=== PATIENT | female | born 1960 | race Caucasian/White ===

== ENCOUNTER 2022-08-17 20:22 | Emergency (ER) | payer OTHER ==
[~2022-08-17] VITALS: Ht 157.5 cm; Wt 88.5 kg
[2022-08-17 20:43] VITALS: BP_SYST 126
--- NOTE | 2022-08-17 21:00 | NUR ---
Pt brought by self, A&Ox4, pt presents to ER with withdraws , states takes Methadone , Hydrocodone and Robaxin, last time she took meds was monday, pt VSS, also c/o R leg pain and tremors, skin pink and warm, cap refill <3, will cont to monitor
--- NOTE | 2022-08-18 | NUR ---
PT FROM HOME WITH C/O RIGHT LEG PAIN WITH OVERALL BODY PAIN, REPORTS CHRONIC PAIN FROM HX OF MS. PT STATES HER HOME PAIN MEDICATION RAN OUT AND WAS UNABLE TO REFILL. A&O X4, AMBULATORY AND FOLLOWING COMMANDS.
--- NOTE | 2022-08-18 00:15 | NUR ---
WITH PATIENT AT BEDSIDE FOR MSE.
[2022-08-18] MEDS ORDERED: METHADONE HCL 10 MG TABLET PO ONE ×2 (00:30→01:15)
[2022-08-18] MEDS ORDERED: KETOROLAC TROMETHAMINE 30 MG VIAL IM ONE (00:30)
[2022-08-18 01:41] VITALS: BP_SYST 179
--- NOTE | 2022-08-18 01:41 | NUR ---
Patient given written and verbal discharge instructions and verbalizes understanding. ER DR. HONG discussed with patient the results and treatment provided. Patient in stable condition. ID arm band removed. Patient educated on pain management and to follow up with PMD. Pain Scale 0. Opportunity for questions provided and answered. Medication side effect fact sheet provided.
== END 2022-08-18 01:41 | disposition home or self-care (01) ==
LOC: SED 20:22
DX: M54.31 Sciatica, right side (principal); F11.23 Opioid dependence with withdrawal; M79.604 Pain in right leg; Z79.899 Other long term (current) drug therapy
CPT/HCPCS: 99283; 96372; J1885

== ENCOUNTER 2023-01-10 22:35 | Emergency (ER) | payer BC, OTHER ==
[~2023-01-10] VITALS: Ht 157.5 cm; Wt 84.8 kg
[2023-01-10 22:54] VITALS: BP_SYST 159
[2023-01-11] MEDS ORDERED: LORazepam 2 MG/ML VIAL IM ONE (00:30)
[2023-01-11 01:50] VITALS: BP_SYST 150
[2023-01-11] MEDS ORDERED: NEU300 PO ×2 (07:04→07:20)
== END 2023-01-11 01:50 | disposition home or self-care (01) ==
LOC: SED 22:35
DX: G25.81 Restless legs syndrome (principal); F41.9 Anxiety disorder, unspecified; Z79.899 Other long term (current) drug therapy; Z88.1 Allergy status to other antibiotic agents; Z88.2 Allergy status to sulfonamides; Z88.5 Allergy status to narcotic agent; Z88.8 Allergy status to other drugs, medicaments and biological substances
CPT/HCPCS: 99283; 96372; J2060

== ENCOUNTER 2023-01-11 04:47 | Emergency (ER) | payer BC ==
[~2023-01-11] VITALS: Ht 157.5 cm; Wt 81.6 kg
[2023-01-11 05:11] VITALS: BP_SYST 157
[2023-01-11] MEDS ORDERED: NEU300 PO ×2 (07:04→07:20)
[2023-01-11 07:26] VITALS: BP_SYST 144
== END 2023-01-11 07:26 | disposition home or self-care (01) ==
LOC: SED 04:47
DX: G25.81 Restless legs syndrome (principal); Z88.1 Allergy status to other antibiotic agents; Z88.5 Allergy status to narcotic agent; Z88.8 Allergy status to other drugs, medicaments and biological substances; Z79.899 Other long term (current) drug therapy
CPT/HCPCS: 99283

== ENCOUNTER 2023-01-15 02:32 | Emergency (ER) | payer BC ==
[~2023-01-15] VITALS: Ht 157.5 cm; Wt 84.4 kg
[~2023-01-15 02:32] MED LIST: NEU300 PO
[2023-01-15 02:46] VITALS: BP_SYST 131
--- NOTE | 2023-01-15 02:51 | NUR ---
Patient to ER bed 7 to gown for evaluation. Side rails up. Report given to CHARBEL ARGUETA.
--- NOTE | 2023-01-15 03:09 | NUR ---
Dr. Cali at bedside examining the patient.
[2023-01-15] MEDS ORDERED: LORazepam 1 MG TABLET PO ONE (03:15)
[2023-01-15 04:31] VITALS: BP_SYST 131
--- NOTE | 2023-01-15 04:31 | NUR ---
Patient given written and verbal discharge instructions and verbalizes understanding. ER Dr. Cali discussed with patient the results and treatment provided. Patient in stable condition. ID arm band removed. Patient educated on pain management and to follow up with PMD. Pain Scale 0. Opportunity for questions provided and answered. Medication side effect fact sheet provided.
[2023-01-18] MEDS ORDERED: PRED20TA PO (00:57)
== END 2023-01-15 04:31 | disposition home or self-care (01) ==
LOC: SED 02:32
DX: G25.81 Restless legs syndrome (principal); Z88.1 Allergy status to other antibiotic agents; Z88.2 Allergy status to sulfonamides; Z88.5 Allergy status to narcotic agent; Z88.6 Allergy status to analgesic agent; Z88.8 Allergy status to other drugs, medicaments and biological substances; Z79.899 Other long term (current) drug therapy
CPT/HCPCS: 99283

== ENCOUNTER 2023-01-17 23:18 | Emergency (ER) | payer BC ==
[2023-01-17 23:22] VITALS: BP_SYST 146
[2023-01-17] MEDS ORDERED: IPRATROPIUM/ALBUTEROL SULFATE 3 ML AMPUL.NEB (DUONEB) INH ONE (23:45)
[2023-01-17] MEDS ORDERED: predniSONE 20 MG TABLET PO ONE (23:45)
--- NOTE | 2023-01-17 23:50 | NUR ---
PT WAS PLACED IN [address] FOR PT ASSESMENT.
--- NOTE | 2023-01-18 | NUR ---
ER at bedside examining patient.
[2023-01-18] MEDS ORDERED: CARBIDOPA/LEVODOPA 25/250 MG TABLET PO ONE (00:45)
[2023-01-18] MEDS ORDERED: LORazepam 2 MG/ML VIAL IM ONE (00:45)
[2023-01-18] MEDS ORDERED: ALBMDI INH (00:57)
[2023-01-18] MEDS ORDERED: LORA-259 PO (00:57)
[2023-01-18] MEDS ORDERED: PRED20TA PO ×2 (00:57→23:53)
[2023-01-18] MEDS ORDERED: OXAZ10CA3 PO (01:02)
[2023-01-18 01:16] VITALS: BP_SYST 144
--- NOTE | 2023-01-18 01:18 | NUR ---
Patient given written and verbal discharge instructions and verbalizes understanding. ER MD discussed with patient the results and treatment provided. Patient in stable condition. ID arm band removed. IV catheter removed intact and dressing applied, no active bleeding. Rx of ALBUTEROL,OXAZEPAM,PREDNISONE given. Patient educated on pain management and to follow up with PMD. Pain Scale 0/10. Opportunity for questions provided and answered. Medication side effect fact sheet provided.
[2023-01-18] MEDS ORDERED: BACL20TA PO (23:53)
[2023-01-18] MEDS ORDERED: ACET-2634 PO (23:53)
[2023-01-18] MEDS ORDERED: LIDO1ADH22 TP (23:53)
[2023-01-18] MEDS ORDERED: LACT1CAP62 PO (23:53)
[2023-01-18] MEDS ORDERED: LOPE2CAP PO (23:53)
== END 2023-01-18 01:13 | disposition home or self-care (01) ==
LOC: SED 23:18
DX: J45.901 Unspecified asthma with (acute) exacerbation (principal); G25.81 Restless legs syndrome; I10 Essential (primary) hypertension; Z88.1 Allergy status to other antibiotic agents; Z88.2 Allergy status to sulfonamides; Z88.5 Allergy status to narcotic agent; Z88.6 Allergy status to analgesic agent; Z88.8 Allergy status to other drugs, medicaments and biological substances; Z79.899 Other long term (current) drug therapy
CPT/HCPCS: 99283; 71046; 94640; 96372; J7512; J2060

== ENCOUNTER 2023-01-18 23:02 | Emergency (ER) | payer BC ==
[~2023-01-18] VITALS: Ht 157.5 cm; Wt 89.4 kg
[~2023-01-18 23:02] MED LIST changes: +ALBMDI INH; +LORA-259 PO; +OXAZ10CA3 PO; +PRED20TA PO
[2023-01-18 23:08] VITALS: BP_SYST 141
[2023-01-18] MEDS ORDERED: LIDOCAINE PATCH 5% 1 EA TP ONE (23:45)
[2023-01-18] MEDS ORDERED: BACLOFEN 10 MG TABLET PO ONE (23:45)
[2023-01-18] MEDS ORDERED: predniSONE 20 MG TABLET PO ONE (23:45)
[2023-01-18] MEDS ORDERED: ACETAMINOPHEN 500 MG TABLET PO ONE (23:45)
[2023-01-18] MEDS ORDERED: LOPERAMIDE HCL 2 MG CAPSULE PO ONE (23:45)
[2023-01-18] MEDS ORDERED: LACT1CAP62 PO (23:53)
[2023-01-18] MEDS ORDERED: LIDO1ADH22 TP (23:53)
[2023-01-18] MEDS ORDERED: LOPE2CAP PO (23:53)
[2023-01-18] MEDS ORDERED: ACET-2634 PO (23:53)
[2023-01-18] MEDS ORDERED: BACL20TA PO (23:53)
[2023-01-18] MEDS ORDERED: PRED20TA PO (23:53)
[2023-01-19 00:13] VITALS: BP_SYST 138
== END 2023-01-19 00:13 | disposition home or self-care (01) ==
LOC: SED 23:02
DX: M54.31 Sciatica, right side (principal); R19.7 Diarrhea, unspecified; J45.909 Unspecified asthma, uncomplicated; I10 Essential (primary) hypertension; Z88.1 Allergy status to other antibiotic agents; Z88.2 Allergy status to sulfonamides; Z88.5 Allergy status to narcotic agent; Z88.6 Allergy status to analgesic agent; Z88.8 Allergy status to other drugs, medicaments and biological substances; Z79.899 Other long term (current) drug therapy
CPT/HCPCS: 99284; J7512